=== PATIENT | male | born 1945 | race Two or more races ===

== ENCOUNTER 2018-07-18 17:21 | Inpatient (IN) | payer MEDICARE, OTHER ==
[~2018-07-18] VITALS: Ht 170.2 cm; Wt 104.5 kg
[2018-07-18] MEDS ORDERED: SODIUM CHLORIDE 0.9% 500 ML IVB ONE (17:30)
[2018-07-18] MEDS ORDERED: FAMOTIDINE (10MG/ML) 2ML VL IV ONE (17:30)
[2018-07-18 18:01] LABS: Basophils # (auto) 0 uL; Eosinophils # (auto) 0 uL; Eosinophils % (auto) 0.2 % (0.0-7.0); Lymphocytes # (auto) 0.7 uL; Neutrophils % (auto) 83.5 % (37.0-80.0)
[2018-07-18 18:03] LABS: Basophils % (auto) 0.3 % (0.0-2.0); Hematocrit 29.9 % (41.0-53.0); Hemoglobin 10.3 g/dL (13.5-17.5); Lymphocytes % (auto) 7.9 % (10.0-50.0); Mean Corpuscular Hemoglobin 33.9 pg (28.0-32.0); Mean Corpuscular Hgb Conc. 34.5 g/dL (32.0-36.0); Mean Corpuscular Volume 98.2 fL (80.0-100.0); Monocytes # (auto) 0.7 uL; Monocytes % (auto) 8.1 % (0.0-12.0); Neutrophils # (auto) 6.9 uL; Platelet Count (auto) 247 10^3/uL (140-450); Red Blood Cells 3.05 10^6/uL (4.5-5.90); Red Cell Distribution Width 13.6 % (11.8-14.3); White Blood Cell 8.2 10^3/uL (4.4-10.8)
[2018-07-18 18:14] LABS: Albumin 2.7 g/dL (3.4-5.0); Calcium 8.1 mg/dL (8.5-10.1); Magnesium 1.6 mg/dL (1.6-2.6); Potassium 3.8 mmol/L (3.5-5.1)
[2018-07-18 18:19] LABS: BUN/Creatinine Ratio 25.3; Bilirubin, Total 0.4 mg/dL (0.2-1.0); Total Protein 5.9 g/dL (6.4-8.2)
[2018-07-18 18:23] LABS: INR 1.18 (0.9-1.15); Partial Thromboplastin Time 26.9 sec (23.78-33.04); Prothrombin Time 12.5 sec (9.27-12.13)
[2018-07-18] MEDS ORDERED: SODIUM CHLORIDE 0.9% 1,000 ML IV ONE (21:30)
[2018-07-18 21:52] LABS: Hematocrit 28.8 % (41.0-53.0); Hemoglobin 9.9 g/dL (13.5-17.5)
[2018-07-18] MEDS ORDERED: ACETAMINOPHEN 500 MG TAB PO PRN (22:15)
[2018-07-18] MEDS ORDERED: ONDANSETRON HCL 4 MG/2 ML VIAL IV PRN (22:15)
[2018-07-18] MEDS: SODIUM CHLORIDE 0.9% 1,000 ML IV SCH (23:49)
[2018-07-18] MEDS: PANTOPRAZOLE 40 MG TAB PO SCH (23:49)
[2018-07-19 04:40] LABS: Basophils # (auto) 0 uL; Basophils % (auto) 0.5 % (0.0-2.0); Eosinophils # (auto) 0.1 uL; Eosinophils % (auto) 0.9 % (0.0-7.0); Hematocrit 24.4 % (41.0-53.0); Hemoglobin 8.2 g/dL (13.5-17.5); Lymphocytes # (auto) 1.1 uL; Lymphocytes % (auto) 14.2 % (10.0-50.0); Mean Corpuscular Hemoglobin 33.6 pg (28.0-32.0); Mean Corpuscular Hgb Conc. 33.7 g/dL (32.0-36.0); Mean Corpuscular Volume 99.9 fL (80.0-100.0); Monocytes # (auto) 0.8 uL; Monocytes % (auto) 9.6 % (0.0-12.0); Neutrophils # (auto) 5.9 uL; Neutrophils % (auto) 74.8 % (37.0-80.0); Platelet Count (auto) 228 10^3/uL (140-450); Red Blood Cells 2.44 10^6/uL (4.5-5.90); Red Cell Distribution Width 13.8 % (11.8-14.3); White Blood Cell 7.9 10^3/uL (4.4-10.8)
[2018-07-19 05:02] LABS: Calcium 7.4 mg/dL (8.5-10.1); Potassium 4.6 mmol/L (3.5-5.1)
[2018-07-19 05:05] LABS: BUN/Creatinine Ratio 27.2
[2018-07-19 09:02] VITALS: BP 100/74
[2018-07-19 09:20] VITALS: BP 118/69
[2018-07-19] MEDS: SODIUM CHLORIDE 0.9% 1,000 ML IV SCH ×2 (09:28→18:49)
[2018-07-19] MEDS ORDERED: DEXTROSE (50%) 50ML SYRG IV PRN (11:00)
[2018-07-19] MEDS ORDERED: DILTIAZEM HCL 25 MG/5 ML VIAL IV ONE (11:15)
[2018-07-19] MEDS ORDERED: SODIUM CHLORIDE 0.9% 1,000 ML IV ONE (11:15)
[2018-07-19] MEDS: PANTOPRAZOLE 40 MG TAB PO SCH ×2 (11:51→22:59)
[2018-07-19] MEDS: FAMOTIDINE (10MG/ML) 2ML VL IV SCH ×2 (11:51→22:59)
[2018-07-19] MEDS: InsuLIN REG 1unit/0.01ml Soln (100units/ml) SC SCH ×2 (12:39→18:00)
[2018-07-19] MEDS: ACCU-CHEK COMFORT CURVE STRIP VI SCH ×2 (12:39→18:49)
[2018-07-19] MEDS ORDERED: GOLYTELY 4L KIT PO ONE (13:45)
[2018-07-19 17:39] LABS: Hematocrit 19.8 % (41.0-53.0)
[2018-07-19 19:20] VITALS: BP 121/65
[2018-07-19 23:22] VITALS: BP 135/77
[2018-07-19 23:46] VITALS: BP 115/74
[2018-07-20] MEDS: ACCU-CHEK COMFORT CURVE STRIP VI SCH ×5 (00:16→23:24)
[2018-07-20 01:58] VITALS: BP 124/65
[2018-07-20 02:17] VITALS: BP 113/73
[2018-07-20 02:26] VITALS: BP 141/80
[2018-07-20 03:33] LABS: Urine Bacteria FEW /hpf (None Seen); Urine Blood Negative /uL (Negative); Urine Mucus FEW (None Seen); Urine Specific Gravity 1.017 (1.001-1.035); Urine WBC 1 /hpf (0 - 3)
[2018-07-20] MEDS: SODIUM CHLORIDE 0.9% 1,000 ML IV SCH ×2 (04:22→14:40)
[2018-07-20] MEDS ORDERED: OCTREOTIDE ACETATE 100 MCG in SODIUM CHL 0.9% 50 ML IV ONE (04:30)
[2018-07-20] MEDS ORDERED: OCTREOTIDE ACETATE 500 MCG/ML VL ONE (04:43)
[2018-07-20] MEDS ORDERED: OCTREOTIDE ACETATE 100 MCG/ML VL IV ONE (04:45)
[2018-07-20] MEDS: OCTREOTIDE ACETATE 500 MCG in SODIUM CHL 0.9% 99 ML IV SCH ×2 (05:02→14:30)
[2018-07-20] MEDS: PANTOPRAZOLE 80 MG in SODIUM CHL 0.9% 60 ML IV SCH ×2 (05:03→14:30)
[2018-07-20] MEDS: InsuLIN REG 1unit/0.01ml Soln (100units/ml) SC SCH ×5 (06:00→23:24)
[2018-07-20] MEDS ORDERED: GOLYTELY 4L KIT PO ONE (06:00)
[2018-07-20] MEDS: DILTIAZEM HCL 25 MG/5 ML VIAL IV PRN (06:35)
[2018-07-20 07:01] LABS: Basophils # (auto) 0 uL; Basophils % (auto) 0.5 % (0.0-2.0); Eosinophils # (auto) 0.1 uL; Eosinophils % (auto) 1.5 % (0.0-7.0); Lymphocytes # (auto) 1.3 uL; Mean Corpuscular Volume 95.3 fL (80.0-100.0); Monocytes # (auto) 0.9 uL
[2018-07-20 07:04] LABS: Hematocrit 19.7 % (41.0-53.0); Lymphocytes % (auto) 16.5 % (10.0-50.0); Mean Corpuscular Hemoglobin 33.7 pg (28.0-32.0); Mean Corpuscular Hgb Conc. 35.4 g/dL (32.0-36.0); Monocytes % (auto) 11.6 % (0.0-12.0); Neutrophils # (auto) 5.3 uL; Neutrophils % (auto) 69.9 % (37.0-80.0); Platelet Count (auto) 151 10^3/uL (140-450); Red Blood Cells 2.07 10^6/uL (4.5-5.90); White Blood Cell 7.6 10^3/uL (4.4-10.8)
[2018-07-20 07:18] LABS: Albumin 2.2 g/dL (3.4-5.0); Calcium 7.5 mg/dL (8.5-10.1); Potassium 4.1 mmol/L (3.5-5.1)
[2018-07-20 07:20] LABS: BUN/Creatinine Ratio 34.2
[2018-07-20 07:22] LABS: Bilirubin, Total 0.4 mg/dL (0.2-1.0); Total Protein 4.6 g/dL (6.4-8.2)
[2018-07-20] MEDS ORDERED: diphenhdrAMINE HCL 50 MG/1 ML VL ONE (08:28)
[2018-07-20] MEDS ORDERED: SODIUM CHLORIDE LOCK 10 ML ONE (08:28)
[2018-07-20] MEDS: PANTOPRAZOLE 40 MG TAB PO SCH ×2 (10:00→21:45)
[2018-07-20] MEDS: fentaNYL CITRATE 100 MCG/2 ML VL ONE ×3 (10:15→10:35)
[2018-07-20] MEDS: MIDAZOLAM HCL 5 MG/ML-1ML VIAL ONE ×3 (10:15→10:35)
[2018-07-20] MEDS ORDERED: EPINEPHrine HCL 1 MG/10 ML SYRG ONE (10:33)
[2018-07-20 14:50] LABS: Eosinophils # (auto) 0.1 uL; Lymphocytes # (auto) 1.4 uL; Neutrophils # (auto) 6.6 uL; Red Blood Cells 2.19 10^6/uL (4.5-5.90); Red Cell Distribution Width 14.2 % (11.8-14.3); White Blood Cell 9.1 10^3/uL (4.4-10.8)
[2018-07-20 14:53] LABS: Basophils # (auto) 0 uL; Basophils % (auto) 0.4 % (0.0-2.0); Eosinophils % (auto) 1.1 % (0.0-7.0); Hematocrit 20.5 % (41.0-53.0); Hemoglobin 7.3 g/dL (13.5-17.5); Mean Corpuscular Hemoglobin 33.2 pg (28.0-32.0); Mean Corpuscular Hgb Conc. 35.5 g/dL (32.0-36.0); Mean Corpuscular Volume 93.5 fL (80.0-100.0); Monocytes % (auto) 10.6 % (0.0-12.0); Neutrophils % (auto) 72.9 % (37.0-80.0); Nucleated Red Blood Cells % 0.1 %; Platelet Count (auto) 129 10^3/uL (140-450)
--- NOTE | 2018-07-20 19:45 | NUR ---
[facility] to [facility] via gurney on cardiac cath technician, and portable 02. Patient transfered to bed, connected to unit monitoring and oxygen, and weighed by bedscale. Patient oriented to Naty pfeiffer RN, unit, room, bed, and unit policies regarding patient care and visiting hours. All questions and concerns addressed, patient verbalized understanding. NOTE: Complete physical assessment done at this time and admission complete. Unable to complete med rec, per patient he will have his bring in medications. Will endorse to day shift RN.
[2018-07-20 20:00] VITALS: BP 135/98
[2018-07-20 21:31] LABS: Basophils # (auto) 0 uL; Basophils % (auto) 0.4 % (0.0-2.0); Eosinophils # (auto) 0.1 uL; Nucleated Red Blood Cells % 0.1 %
[2018-07-20 21:34] LABS: Eosinophils % (auto) 1.6 % (0.0-7.0); Hematocrit 19.4 % (41.0-53.0); Lymphocytes # (auto) 1.3 uL; Lymphocytes % (auto) 15.7 % (10.0-50.0); Mean Corpuscular Hemoglobin 32.8 pg (28.0-32.0); Mean Corpuscular Hgb Conc. 35.3 g/dL (32.0-36.0); Mean Corpuscular Volume 93.1 fL (80.0-100.0); Monocytes % (auto) 11.5 % (0.0-12.0); Neutrophils # (auto) 6.1 uL; Neutrophils % (auto) 70.8 % (37.0-80.0); Platelet Count (auto) 120 10^3/uL (140-450); Red Blood Cells 2.08 10^6/uL (4.5-5.90); Red Cell Distribution Width 14.4 % (11.8-14.3); White Blood Cell 8.6 10^3/uL (4.4-10.8)
[2018-07-20 21:41] LABS: Hemoglobin 6.8 g/dL (13.5-17.5)
--- NOTE | 2018-07-20 21:53 | NUR ---
SPOKE WITH HOSPITALIST MARY MONTIEL REGARDING CRITICAL HGB PER [facility] TRANSFUSE ONE UNIT PRBC
[2018-07-20 23:25] VITALS: BP 135/98
[2018-07-21] VITALS (9 sets, daily range): BP systolic 104–158; BP diastolic 58–92
[2018-07-21] MEDS: SODIUM CHLORIDE 0.9% 1,000 ML IV SCH (00:15)
[2018-07-21] MEDS: OCTREOTIDE ACETATE 500 MCG in SODIUM CHL 0.9% 99 ML IV SCH ×2 (00:30→09:50)
[2018-07-21] MEDS: PANTOPRAZOLE 80 MG in SODIUM CHL 0.9% 60 ML IV SCH ×2 (00:30→09:49)
--- NOTE | 2018-07-21 01:15 | NUR ---
TRANSFUSION BEGIN PATIENT EDUCATED ON SIDE EFFECTS TO REPORT ON BLOOD PRODUCTS. PATIENT VERBALIZES UNDERSTANDING. WILL MONITOR PER HOSPITAL PROTOCOL.
[2018-07-21] MEDS: InsuLIN REG 1unit/0.01ml Soln (100units/ml) SC SCH ×3 (06:00→17:43)
[2018-07-21] MEDS: ACCU-CHEK COMFORT CURVE STRIP VI SCH ×3 (06:00→17:43)
--- NOTE | 2018-07-21 06:57 | NUR ---
AM CARE / END OF SHIFT COMPLETE BED BATH PROVIDED USING WARM SOAPY WASH CLOTHS AND CHG WIPES. PATIENT ABLE TO ASSIST IN BED BATH. PARTIAL BED LINEN CHANGE DONE: NO GI BLEED THROUGHOUT THE SHIFT. NEW GOWN PLACED . PATIENT EXPERIENCED NO BLOOD TRANSFUSION REACTION. LAB TO DRAW AM CBC.PATIENT ABLE TO TURN SELF IN BED WITHOUT ASSISTANCE. REPOSITIONED SELF IN BED FOR COMFORT. CALL LIGHT GIVEN TO PATIENT. AWAKE IN BED WITH NO S/S OF DISTRESS OR SOB POX 96%. WILL ENDORSE CARE TO DAY SHIFT RN.
--- NOTE | 2018-07-21 07:30 | NUR ---
RECEIVED PATIENT SITTING UP IN THE BED, A/O TIMES 4, O2 AT 2L BY N/C, USES THE URINAL, SALINE LOCK TO THE RAC 18G FLUSHED AND PATENT, NS INFUSING TO THE LEFT HAND AT 100ML/HR BY THE IV PUMP, DENIES PAIN AND NO BLEEDING DURING THE NIGHT, STATES HE IS ABLE TO USE THE URINAL
[2018-07-21 07:40] LABS: Basophils # (auto) 0 uL; Eosinophils # (auto) 0.1 uL; Monocytes # (auto) 0.8 uL; White Blood Cell 8.5 10^3/uL (4.4-10.8)
[2018-07-21 07:43] LABS: Basophils % (auto) 0.3 % (0.0-2.0); Eosinophils % (auto) 1.5 % (0.0-7.0); Hematocrit 21.6 % (41.0-53.0); Hemoglobin 7.5 g/dL (13.5-17.5); Lymphocytes # (auto) 1.1 uL; Lymphocytes % (auto) 12.8 % (10.0-50.0); Mean Corpuscular Hemoglobin 32.5 pg (28.0-32.0); Mean Corpuscular Hgb Conc. 34.9 g/dL (32.0-36.0); Mean Corpuscular Volume 93.1 fL (80.0-100.0); Monocytes % (auto) 9.6 % (0.0-12.0); Neutrophils # (auto) 6.4 uL; Neutrophils % (auto) 75.8 % (37.0-80.0); Nucleated Red Blood Cells % 0.2 %; Platelet Count (auto) 123 10^3/uL (140-450); Red Blood Cells 2.32 10^6/uL (4.5-5.90); Red Cell Distribution Width 14.7 % (11.8-14.3)
[2018-07-21 07:56] LABS: Albumin 2.2 g/dL (3.4-5.0); BUN/Creatinine Ratio 16.7; Calcium 7.1 mg/dL (8.5-10.1); Potassium 3.4 mmol/L (3.5-5.1)
[2018-07-21 07:59] LABS: Bilirubin, Total 0.4 mg/dL (0.2-1.0); Total Protein 4.6 g/dL (6.4-8.2)
--- NOTE | 2018-07-21 08:30 | NUR ---
PATIENT WAS ABLE TO EAT HIS BREAKFAST WITHOUT HELP AND TOLERATED
--- NOTE | 2018-07-21 09:30 | NUR ---
FRIEND IN TO SEE THE PATIENT
--- NOTE | 2018-07-21 09:45 | NUR ---
DISCUSSED MEDICATIONS WITH THE PATIENT AND VERBALIZED THAT HE UNDERSTOOD AND MEDS GIVEN S ORDERED
[2018-07-21] MEDS: PANTOPRAZOLE 40 MG TAB PO SCH ×2 (09:48→21:30)
--- NOTE | 2018-07-21 10:45 | NUR ---
NO COMPLAINTS OF PAIN AND NO BLEEDING SO FAR THIS SHIFT
--- NOTE | 2018-07-21 11:30 | NUR ---
WATCHING TV, NO COMPLAINTS
--- NOTE | 2018-07-21 12:40 | NUR ---
ATE LUNCH AND TOLERATED NO N/V
--- NOTE | 2018-07-21 13:40 | NUR ---
DR KAUR TO SEE THE PATIENT AND STATED TO CONTNINUE CLEAR LIQUIDS TODAY AND IF NO BLEEDING MAY HAVE REGULAR DIET TOMORROW
--- NOTE | 2018-07-21 14:40 | NUR ---
WATCHING TV, DENIES STOMACH PAIN
--- NOTE | 2018-07-21 14:43 | NUR ---
NUTRITION ASSESSMENT NOTES Please refer to link notes of nutrition screen form filed under the intervention section of the plan of care for further details. Est. Needs: 1650 kcal to 2150 kcal (15-20 kcal/kgBW), 87 gms to 108 gms pro (0.8-1.0 gms/kgBW). Will continue to monitor pertinent labs and reassess nutrient need prn Thank you. Addendum: 07/21/18 at [address] Amended: Links added.
--- NOTE | 2018-07-21 15:17 | NUR ---
LYING IN BED WATCHING TV, AT THE BEDSIDE, PATIENT HAS HAD NO RECTAL BLEEDING TODAY
--- NOTE | 2018-07-21 16:00 | NUR ---
WATCHING TV, NO COMPLAINTS
--- NOTE | 2018-07-21 16:55 | NUR ---
NO CHANGE IN CONDITION, NO BLEEDING AT THIS TIME AND NO COMPLAINS OF PAIN
--- NOTE | 2018-07-21 17:55 | NUR ---
LYING IN BED WATCHING TV, WENT HOME
--- NOTE | 2018-07-21 18:25 | NUR ---
DR MORALES IN TO SEE THE PATIENT D/C'D THE NS AND THE ACCU CHECKS, ORDERED HH FOR TONIGHT AND IN THE MORNING, PATIENT ATE HIS DINNER, NO HELP NEEDED TOLERATED, WELL, NO BLEEDING DURING THE SHIFT A/O TIMES 4, O2 AT 2L BY N/C, USES THE URINAL, SALINE LOCK TO THE RAC AND THE LEFT HAND BOTH INTACT AND PATENT, WILL CONTINUE TO MONITOR AND GIVE REPORT TO THE NEXT SHIFT
--- NOTE | 2018-07-21 19:20 | NUR ---
OPENING NOTE RECEIVED REPORT FROM DAY SHIFT RN. ASSUMED CARE OF PATIENT. PATIENT IN BED WATCHING TV. NO SIGNS OR SYMPTOMS OF SOB, PAIN OR DISTRESS. CURRENTLY ON 2L 02 NASAL CANULA, 02 SAT - 99%. BED IN LOWEST POSITION, SIDE RAILS UP X2, CALL LIGHT WITHIN REACH. WILL CONTINUE TO MONITOR.
[2018-07-21 19:31] LABS: Hematocrit 22.7 % (41.0-53.0)
--- NOTE | 2018-07-21 22:10 | NUR ---
ROUNDS PATIENT IN BED SLEEPING. NO SIGNS OR SYMPTOMS OF SOB, PAIN OR DISTRESS. CURRENTLY ON 2L 02 NASAL CANULA, 02 SAT - 99%. BED IN LOWEST POSITION, SIDE RAILS UP X2, CALL LIGHT WITHIN REACH. WILL CONTINUE TO MONITOR.
[2018-07-22] VITALS (11 sets, daily range): BP systolic 112–136; BP diastolic 60–82
--- NOTE | 2018-07-22 03:55 | NUR ---
MORNING HYGIENE CARE PATIENT REFUSED MORNING CARE AND LINEN CHANGE. PATIENT STATES, "NO I WANT TO SLEEP FOR NOW."
[2018-07-22 05:13] LABS: Hemoglobin 7.8 g/dL (13.5-17.5)
[2018-07-22 05:15] LABS: Hematocrit 22.1 % (41.0-53.0)
--- NOTE | 2018-07-22 05:15 | NUR ---
ROUNDS PATIENT IN BED SLEEPING WITH NO SIGNS OR SYMPTOMS OF SOB, PAIN, OR DISTRESS. CURRENTLY ON 2L NASAL CANULA, 02 SAT - 100%. BED IN LOWEST POSITION, SIDE RAILS UP X2, CALL LIGHT WITHIN REACH. WILL CONTINUE TO MONITOR.
--- NOTE | 2018-07-22 06:49 | NUR ---
END OF SHIFT PATIENT IN BED SLEEPING WITH NO SIGNS OR SYMPTOMS OF SOB, PAIN OR DISTRESS. CURRENTLY ON 2L 02 NASAL CANULA, 02 SAT - 99%. BED IN LOWEST POSITION, SIDE RAILS UP X2, CALL LIGHT IN REACH. WILL ENDORSE CARE TO DAY SHIFT RN.
--- NOTE | 2018-07-22 07:30 | NUR ---
RECEIVED PATIENT LYING IN BED, EYES CLOSED BUT OPENED WHEN NAME WAS CALLED A/O TIMES 4, O2 AT 2L BY N/C, SALINE LOCK TO THE RAC AND THE LEFT HAND BOTH FLUSHED AND PATENT, USES THE URINAL, DENIES PAIN, EXPLAIN THAT WE HAVE TO WAIT UNTIL THE MD COMES AND HE WILL CHANGE HIS DIET
--- NOTE | 2018-07-22 08:20 | NUR ---
SITTING UP IN BED EATING HIS BREAKFAST
--- NOTE | 2018-07-22 09:18 | NUR ---
LYING IN BED WATCHING TV,
[2018-07-22] MEDS: PANTOPRAZOLE 40 MG TAB PO SCH ×2 (09:49→20:02)
--- NOTE | 2018-07-22 09:50 | NUR ---
EXPLAIN MEDICATIONS TO THE PATIENT REGARDING THE DOSAGES USAGE, SIDE EFFECTS, VERBALIZED THAT HE UNDERSTOOD AND MEDS GIVEN ORDERED
--- NOTE | 2018-07-22 10:45 | NUR ---
DR WREN IN TO SEE THE PATIENT AND ORDERED TO CHANGE THE LUNCH TO FULL LIQUID
--- NOTE | 2018-07-22 11:30 | NUR ---
BROTHER CALLED AND TOLD THE PATIENT THAT HIS MOM HAD PASSED, BUT PATIENT STATED THAT IT WAS EXPECTED SHE WAS ON HOSPICE, STATES HE IS OKAY WITH IT
--- NOTE | 2018-07-22 12:00 | NUR ---
DR KAUR IN TO SEE THE PATIENT AND DISCUSSED THE POC FOR THE GI BLEED WITH THE PATIENT
--- NOTE | 2018-07-22 12:32 | NUR ---
SITTING UP IN THE BED EATING HIS LUNCH
--- NOTE | 2018-07-22 13:35 | NUR ---
dr gonzalez in to see the patient regarding the afib
--- NOTE | 2018-07-22 14:22 | NUR ---
FAMILY IN TO VISIT WITH THE PATIENT
--- NOTE | 2018-07-22 15:15 | NUR ---
SITTING UP IN BED WATCHING TV,
--- NOTE | 2018-07-22 15:42 | NUR ---
SITTING UP IN BED WATCHING TV, GALILEA MATHEWS ON TODAY
--- NOTE | 2018-07-22 16:03 | NUR ---
DAUGHTER IN TO VISIT WITH THE PATIENT
--- NOTE | 2018-07-22 16:05 | NUR ---
I UNIT OF BLOOD ORDERED TO BE TRANSFUSED TODAY
--- NOTE | 2018-07-22 16:58 | NUR ---
DAUGHTER STILL WITH THE PATIENT, WHO IS USING THE URINAL
--- NOTE | 2018-07-22 17:37 | NUR ---
I UNIT OF BLOOD STARTED, EXPLAIN THE SIDE AFFECTS TO THE PATIENT AND VERBALIZED THAT HE UNDERSTOOD, VS [id number] 122/81
--- NOTE | 2018-07-22 17:50 | NUR ---
NO REACTION TO THE BLOOD TRANSFUSION AT THIS TIME
--- NOTE | 2018-07-22 18:18 | NUR ---
PATIENT SITTING UP IN THE BED, EATING HIS DINNER, A/O TIMES 4, BLOOD INFUSING INTO THE LEFT HAND BY THE IV PUMP AT 86 ML/HR, RAC SALINE LOCK, FLUSHED AND PATENT, USES THE URINAL, O2 AT 2L BY N/C, STATES HE GETS A LITTLE DIZZY WHEN HIS HEART RATE GOES UP, GOES UP WHEN HE IS MOVING AROUND BUT GOES BACK DOWN SOON HE STOPS, WILL CONTINUE TO MONITOR AND GROUND WORKER REPORT TO THE NEXT SHIFT
--- NOTE | 2018-07-22 23:20 | NUR ---
Patient PRBC transfused. Vital signs within normal limits per hospital policy and standard. Patient remains aloc x 4, ambulatory. Patient denies pain and or discomfort. Patient vital signs 100s afib chronic, SBP 110s, afebrile, with good urine output. Remains on room air. Patient denies sob. Patient remains in bed in low position bed rails up x 3, and locked. Call light within reach. Will continue to closely monitor patient.
[2018-07-23] VITALS (7 sets, daily range): BP systolic 110–144; BP diastolic 62–82
[2018-07-23 05:49] LABS: Basophils # (auto) 0 uL; Basophils % (auto) 0.7 % (0.0-2.0); Eosinophils # (auto) 0.1 uL; Eosinophils % (auto) 1.4 % (0.0-7.0); Hematocrit 24.7 % (41.0-53.0); Hemoglobin 8.6 g/dL (13.5-17.5); Lymphocytes # (auto) 1.4 uL; Lymphocytes % (auto) 20.1 % (10.0-50.0); Mean Corpuscular Hemoglobin 32.4 pg (28.0-32.0); Mean Corpuscular Hgb Conc. 34.6 g/dL (32.0-36.0); Mean Corpuscular Volume 93.5 fL (80.0-100.0); Monocytes # (auto) 0.8 uL; Monocytes % (auto) 11.4 % (0.0-12.0); Neutrophils # (auto) 4.6 uL; Neutrophils % (auto) 66.4 % (37.0-80.0); Nucleated Red Blood Cells % 0.2 %; Platelet Count (auto) 167 10^3/uL (140-450); Red Blood Cells 2.64 10^6/uL (4.5-5.90); Red Cell Distribution Width 14.9 % (11.8-14.3); White Blood Cell 6.9 10^3/uL (4.4-10.8)
[2018-07-23 06:02] LABS: Potassium 3.6 mmol/L (3.5-5.1)
[2018-07-23 06:07] LABS: Albumin 2.3 g/dL (3.4-5.0); BUN/Creatinine Ratio 9.1; Bilirubin, Total 0.6 mg/dL (0.2-1.0)
[2018-07-23 06:11] LABS: Total Protein 5.3 g/dL (6.4-8.2)
--- NOTE | 2018-07-23 07:12 | NUR ---
SHIFT OPENING NOTE REPORT RECEIVED FROM FIELD MARKETING REPRESENTATIVE RN. PATIENT AOX4, MOVING ALL EXTREMITIES, REPORTS NO PAIN OR DISCOMFORT AT THIS TIME. HR 120'S AFIB, ABDOMEN SOFT AND NON TENDER, REPORTS NO BLOODY OR TARRY STOOLS AT THIS TIME, BLADDER NON DISTENDED. PLAN OF CARE DISCUSSED WITH PATIENT AT THIS TIME
[2018-07-23] MEDS: DILTIAZEM HCL 25 MG/5 ML VIAL IV PRN (08:51)
--- NOTE | 2018-07-23 08:51 | NUR ---
HOLD P.T. TODAY PER RN.
[2018-07-23] MEDS: PANTOPRAZOLE 40 MG TAB PO SCH ×2 (09:38→21:40)
[2018-07-23] MEDS: METOPROLOL SUCCINATE XL 50 MG TAB PO SCH (09:38)
--- NOTE | 2018-07-23 09:58 | NUR ---
MEDICATION RECONCILIATION LEFT MESSAGE ON WIFES PHONE TO BRING IN OR CALL BACK WITH HOME MEDICATIONS. AWAITING CALLBACK
[2018-07-23] MEDS ORDERED: DILTIAZEM HCL 120MG ER CAP PO ONE (11:00)
--- NOTE | 2018-07-23 11:26 | NUR ---
LINEN CHANGE PATIENT OFFERED LINEN CHANGE AT THIS TIME. PATIENT STATES "I'M FINE MAYBE LATER"
--- NOTE | 2018-07-23 11:45 | NUR ---
FAMILY BROTHER AT BEDSIDE. UPDATED ON PATIENT STATUS. ALL QUESTIONS AND CONCERNS ADDRESSED AT THIS TIME
[2018-07-23] MEDS ORDERED: DILT60TA27 PO (12:16)
[2018-07-23] MEDS ORDERED: ATOR10TA PO (12:16)
[2018-07-23] MEDS ORDERED: IRBE300T46 PO (12:16)
[2018-07-23] MEDS ORDERED: CHLO25TA22 PO (12:17)
--- NOTE | 2018-07-23 12:32 | NUR ---
DR. DUMAS CALLBACK ORDERS RECEIVED
--- NOTE | 2018-07-23 14:26 | NUR ---
Nutrition Follow-up Notes Wt.: 108.4 kg Pt was sleeping with no family by bedside. per records pt s/p colonoscopy and reports of diverticulosis bleed. pt with no distress noted per nursing now advanced to regular diet with adequate PO of 100% x 3 per RN doc Est. Needs: 1650 kcal to 2150 kcal (15-20 kcal/kgBW), 87 gms to 108 gms pro (0.8-1.0 gms/kgBW). Will continue to monitor pertinent labs and reassess nutrient need prn Labs: CA 8.0 L, ALB 2.3 L. Skin: Aaron scale 17, mod risk skin intact per RN doc GI: Pt had 500 ml BM 5/2 per plater hot dip. PES: Increased nutrient needs r/t acute/chronic medical condition aeb Lower GI bleed,Anemia- r/t blood loss,Colonic Altered nutrition related lab values r/t current/chronic medical condition aeb hyponatremia, hypokalemia,hyperchloremia, hypocalcemia, severe hypoalbuminemia. Obesity r/t excessive food intake aeb 161% IBW, BMI 37.4 kg/m2 and increased body adiposity Will continue to monitor PO intake, skin status, pertinent labs and weight trend. F/u in 3-5 days. Rec.: 1.) consider Cardiac: 2 gms Na, Low Chol, Low Fat diet 2.) If Albumin level continues trending down, consider Prostat 1 pkt BID. 3.) Continue close supervision with meals. 4.) Refer to RD for further nutrition education and weight monitoring upon discharged.. 5.) Continue current plan of care.
--- NOTE | 2018-07-23 17:15 | NUR ---
PATIENT OUT OF BED TO CHAIR
--- NOTE | 2018-07-23 17:16 | NUR ---
COMPLETE LINEN CHANGE PERFORMED AT THIS TIME
--- NOTE | 2018-07-23 19:30 | NUR ---
Initial Assessment Patient received laying on bed watching television. Patient is awake, alert, and oriented x4. Denies any pain or discomfort at this time. HOB elevated greater than 30 degrees. PIV intact and patent with no s/s of infiltration or phlebitis noted.Neurovascular status intact with strong palpable distal pulses x4 extremities, skin warm to touch, capillary refill brisk. Patient demonstrated ability to turn self independently in bed. Patient educated about how to use the call light and encouraged to call when needing any assistance or wanting to get OOB and patient verbalized understanding. Bed in lowest position, side rails up x2, bed brakes set, all alarms audible. No concerns or complaints voiced from patient. Continue close monitoring.
[2018-07-23] MEDS: DILTIAZEM HCL 180MG ER CAP PO SCH (21:43)
--- NOTE | 2018-07-23 21:55 | NUR ---
Report given Report given to Marquise QUINTANILLA.
--- NOTE | 2018-07-23 22:05 | NUR ---
Pt. transferred to room 249A SBAR report confirmed by DWIGHT Camarillo. [facility] transferred to room 249A via gurney on monitor car operator. All personal belongings transferred with patient to receiving floor. Patient care transferred to DWIGHT Camarillo. NOTE: At time of transfer, patient is awake, alert, and oriented x4, RR even and unlabored with equal rise and fall, HR 80's A-fib, BP 140's systolic, RR 18 No C/O pain or discomfort. Agrees with transfer to different unit, states MD informed him this afternoon that he will be downgraded. Pt states all belongings are with him. Upon arrival to room, chart was handed to assembler unit and patient was assisted into bed without incident, side rails up x2, educated about how to use call light and informed RN that patient had arrived. Upon leaving room, tele DECAL DECORATOR was in room about to take the patient's vital signs.
--- NOTE | 2018-07-23 22:06 | NUR ---
Pt arrived on tele floor per wheelchair accompanied by the [facility] nurse Keila. Pt in stable condition. Will continue to monitor.
[2018-07-24 04:51] VITALS: BP 113/65
[2018-07-24 06:41] LABS: Hematocrit 24.9 % (41.0-53.0); Hemoglobin 8.7 g/dL (13.5-17.5)
--- NOTE | 2018-07-24 07:15 | NUR ---
Open Shift Note Received report on patient, awake and sitting up in bed. Patient shows no signs of distress at this time. Discussed POC with patient. Patient states his was able to call yesterday and give nurse list of his home medications. Patient states no longer feeling signs of syncope. Bed in lowest locked position, side rails up x2, and call light within reach. Will continue to monitor.
[2018-07-24 09:00] VITALS: BP 114/72
[2018-07-24] MEDS: METOPROLOL SUCCINATE XL 50 MG TAB PO SCH (09:42)
[2018-07-24] MEDS: PANTOPRAZOLE 40 MG TAB PO SCH (09:42)
[2018-07-24] MEDS: DILTIAZEM HCL 180MG ER CAP PO SCH (09:43)
[2018-07-24 14:11] VITALS: BP 114/72
--- NOTE | 2018-07-24 14:36 | NUR ---
faxed HH order to [facility], they see pts in [place]
--- NOTE | 2018-07-24 14:43 | NUR ---
SS consult regarding home health for safety eval. Pt resides with his spouse in [place], [place]. Per pt he was down here visiting and plans on returning home to [place] upon discharge. Pt states he has not had home health before. Provided pt with list of home health agencies and pt wanted agency that can see him in [place]. Pt choose [facility]. Contacted John Bergeron, Decal[employer]director global strategic publisher sales, and faxed requested medical information. Pt accepted onto service and will be seen on tomorrow by Marina QUINTANILLA for assessment. Addendum: 07/24/18 at 1448 by TANYA NORWOOD Amended: Links added.
--- NOTE | 2018-07-24 15:45 | NUR ---
Discharged Discharge instructions given as ordered. Encourage to follow up with PMD as instructed. All questions and concerns addressed. Patient verbalized understanding. Patient verbalized understanding that home health is set up with [facility] and they will begin tomorrow. IV removed with catheter intact, pressure dressing applied. Telemetry unit returned to [facility]. Patient taken to vehicle via wheelchair with all personal belongings, accompanied by staff and family member. No distress noted at time of departure.
--- NOTE | 2018-07-24 15:57 | NUR ---
Hermelinda at [facility] has accepted pt and will start care 24- 48 hrs post d/c
--- NOTE | 2018-07-24 16:14 | NUR ---
[facility] cancelled and pt will go with [facility] for pt
== END 2018-07-24 15:45 | disposition home health service (06) | DRG 378 ==
LOC: ER 17:29 → TELE 22:35 → DOU IN ICU 07-20 19:34 → TELE-EAST 07-23 22:05
PROVIDERS: ADMIT Nurse Practitioner Family; ATTEND Internal Medicine
PROC: 30233K1 Transfusion of Nonautologous Frozen Plasma into Peripheral Vein, Percutaneous Approach (ICD-10-PCS; principal; 2018-07-19)
PROC: 0W3P8ZZ Control Bleeding in Gastrointestinal Tract, Via Natural or Artificial Opening Endoscopic (ICD-10-PCS; 2018-07-20)
PROC: 30233N1 Transfusion of Nonautologous Red Blood Cells into Peripheral Vein, Percutaneous Approach (ICD-10-PCS; 2018-07-21)
DX: K57.31 Diverticulosis of large intestine without perforation or abscess with bleeding (principal); E87.1 Hypo-osmolality and hyponatremia; E44.0 Moderate protein-calorie malnutrition; D68.59 Other primary thrombophilia; I48.92 Unspecified atrial flutter; D50.0 Iron deficiency anemia secondary to blood loss (chronic); R73.9 Hyperglycemia, unspecified; E66.9 Obesity, unspecified; I10 Essential (primary) hypertension; N28.1 Cyst of kidney, acquired; E83.51 Hypocalcemia; I48.2 Chronic atrial fibrillation; E88.09 Other disorders of plasma-protein metabolism, not elsewhere classified; I48.91 Unspecified atrial fibrillation; I70.90 Unspecified atherosclerosis; Z79.899 Other long term (current) drug therapy; Z79.01 Long term (current) use of anticoagulants; Z68.36 Body mass index [BMI] 36.0-36.9, adult
CPT/HCPCS: 36415; 45382; 71045; 74176; 80048; 80053; 81001; 82150; 82270; 82962; 83036; 83690; 83735; 84484; 85014; 85018; 85025; 85610; 85730; 86850; 86900; 86901; 86920; 87081; 93005; 94761; 96361; 96374; C9113; G0378; J2250; J3490